=== PATIENT | male | born 1990 | race Caucasian/White ===

== ENCOUNTER 2019-04-02 23:22 | Emergency (ER) | payer MEDICAID ==
[~2019-04-02] VITALS: Ht 172.7 cm; Wt 68.0 kg
[2019-04-02 23:26] VITALS: BP 165/95
[2019-04-02 23:52] VITALS: BP 113/76
--- NOTE | 2019-04-02 23:56 | NUR ---
ED Nurse Note: Patient was brought in by kin [place] [address] c/o "hearing voices" and wanting to be admitted to psych facility. Pt denies SI, HI. Pt stated to voices are telling him to check in to a psych faciltiy.
--- NOTE | 2019-04-03 00:10 | NUR ---
ED Nurse Note: ERMD at bedside
--- NOTE | 2019-04-03 00:20 | NUR ---
ED Nurse Note: ERMD instructed for pt to sleep in room until morning, continue evaluation/ monitoring
--- NOTE | 2019-04-03 01:00 | NUR ---
ED Nurse Note: ERMD at bedside
[2019-04-03] MEDS ORDERED: LORazepam 1mg tab ORAL ONE (01:30)
--- NOTE | 2019-04-03 01:30 | NUR ---
ED Nurse Note: ERMD order medication; administered to pt, tolerated well no s/s of distress noted. VSS, aao x 4. pt denies further suicidal ideation or thoughts to harm himself or others. ERMD aware
[2019-04-03 01:42] VITALS: BP 110/79
[2019-04-03] MEDS ORDERED: ATIVAN1 MG ORAL (02:11)
--- NOTE | 2019-04-03 03:10 | NUR ---
ED Nurse Note: Pt sleeping in bed, no s/s of distress noted. VSS. ERMD notified
[2019-04-03 03:45] VITALS: BP 110/74
--- NOTE | 2019-04-03 04:40 | Emergency Room Report ---
History of Present Illness General Chief Complaint: Behavioral Complaint Source: Patient Present Illness HPI 28-year-old male presents ED for evaluation. Brought in by EMS for psychiatric evaluation. Patient states he is hearing voices. Denies SI or HI. States he feels anxious. Denies alcohol or drug use. Does not take any psychiatric meds. No other aggravating relieving factors. Denies any other associated symptoms Allergies: Coded Allergies: No Known Allergies (Unverified , 04/02/19) Patient History Past Medical History: psych hx Past Surgical History: none Pertinent Family History: none Social History: Denies: smoking, alcohol use, drug use Immunizations: UTD Reviewed Nursing Documentation: PMH: Agreed; PSxH: Agreed Nursing Documentation-PMH History Of Psychiatric Problem: Yes Review of Systems All Other Systems: negative except mentioned in HPI Physical Exam Vital Signs Date Time Temp Pulse Resp B/P (MAP) Pulse Ox O2 Delivery O2 Flow Rate FiO2 04/02/19 23:21 97.2 90 16 113/76 (88) 99 Room Air Sp02 EP Interpretation: reviewed, normal General Appearance: no apparent distress, alert, GCS 15, non-toxic Head: normocephalic, atraumatic Eyes: bilateral eye normal inspection, bilateral eye PERRL ENT: hearing grossly normal, normal pharynx, no angioedema, normal voice Neck: full range of motion, supple/symm/no masses Respiratory: chest non-tender, lungs clear, normal breath sounds, speaking full sentences Cardiovascular #1: regular rate, rhythm, no edema Cardiovascular #2: 2+ carotid (R), 2+ carotid (L), 2+ radial (R), 2+ radial (L) , 2+ dorsalis pedis (R), 2+ dorsalis pedis (L) Gastrointestinal: normal bowel sounds, non tender, soft, non-distended, no guarding, no rebound Rectal: deferred Genitourinary: normal inspection, no CVA tenderness Musculoskeletal: back normal, normal range of motion, gait/station normal, non- tender Neurologic: alert, motor strength/tone normal, oriented x3, sensory intact, responsive, speech normal Psychiatric: judgement/insight normal, memory normal, no suicidal/homicidal ideation, no delusions, anxious Reflexes: 3+ bicep (R), 3+ bicep (L), 3+ tricep (R), 3+ tricep (L), 3+ knee (R) , 3+ knee (L) Lymphatic: no adenopathy Medical Decision Making Diagnostic Impression: Primary Impression: Anxiety ER Course Hospital Course 28-year-old male presents the ED hearing voices, feeling anxious Differential diagnoses include: psychosis, ETOH ,anxiety Clinical course Patient placed on stretcher. After initial history, physical exam reveals male in no acute distress. Appears anxious. Good eye contact. Answering questions appropriately. No SI or HI. No danger to self or others. Patient given Ativan. Allowed to rest. observed in ED with stable vitals. Safe for discharge for close outpatient follow-up. I will provide referrals I. I feel this is a highly complex case requiring extensive working including EKG/Rhythm strip, Xray/CT/US, Blood/urine lab work, repeat exams while in ED, and administration of strong opiates/narcotics for pain control, admission to hospital or close patient follow up. Diagnosis - anxiety Stable and discharged to home with Rx Ativan. Followup with PMD. Return to ED if symptoms recur or worse Last Vital Signs Date Time Temp Pulse Resp B/P (MAP) Pulse Ox O2 Delivery O2 Flow Rate FiO2 04/02/19 23:52 90 16 Room Air 04/02/19 23:52 97.2 113/76 99 Status: improved Disposition: HOME, SELF-CARE Condition: Stable Scripts Lorazepam* (ATIVAN*) 1 Mg Tablet 1 MG ORAL THREE TIMES A DAY, #10 TAB Prov: Gopal Cole MD 04/03/19 Referrals: NOT CHOSEN IPA/,REFERRING (PCP) [facility] Psych ER - Peds ER - Patient Instructions: Panic Attacks, [id number] Gopal Cole MD Apr 03, 2019 04:40
--- NOTE | 2019-04-03 05:15 | NUR ---
ED Nurse Note: ERMD at bedside assessing pt for discharge
[2019-04-03 05:30] VITALS: BP_SYST 110; BP_DIAS 74; BP_DIAS 82
--- NOTE | 2019-04-03 05:30 | NUR ---
ER DISCHARGE NOTE: Patient is cleared to be discharged home per ERMD, pt is aox4, on room air, with stable vital signs. pt was given dc and prescription instructions, pt was able to verbalize understanding, pt id band removed. pt is able to ambulate with steady gait. pt took all belongings. Pt stated that he "does not feel well"; ERMD notified. ERMD assessed pt and gave medical clearance.
== END 2019-04-03 05:30 | disposition home or self-care (01) ==
LOC: EDBD 23:22 → EMR 23:50
DX: F41.9 Anxiety disorder, unspecified (principal)
CPT/HCPCS: 99282